=== PATIENT | female | born 1970 | race Caucasian/White ===

== ENCOUNTER 2016-11-19 04:30 | Inpatient (IN) | payer OTHER ==
[2016-11-19] MEDS ORDERED: IOPAMIDOL 300 (61%) 150 ML VIAL IV ONE (04:31)
[2016-11-19] MEDS ORDERED: ONDANSETRON 4 MG/2ML 2 ML VIAL ONE (05:09)
[2016-11-19] MEDS ORDERED: SODIUM CHLORIDE 0.9% 1,000 ML ONE ×2 (05:09→06:32)
[2016-11-19] MEDS ORDERED: HYDROMORPHONE HCL 0.5 MG/0.5 ML SYRINGE ONE ×2 (05:09→05:26)
[2016-11-19 05:33] LABS: ABSOLUTE NEUTROPHIL COUNT 6.2 K/mm3 (1.8-7.7); BASO % 0.2 % (0.2-1.0); EOS # 0.1 (0.0-0.5); EOS % 1.3 % (0.9-2.9); HEMATOCRIT 38.3 % (37.0-47.0); HEMOGLOBIN 12.8 gm/l (12.0-16.0); IMM NEUT # 0.1 K/mm3 (0-0.2); IMM NEUT% 0.7 % (0-1); LYMPH # 1.8 (1.0-4.8); LYMPH % 20.1 % (15-45); MEAN CELL VOLUME 96.5 fl (81.0-99.0); MEAN CORPUSCULAR HEMOGLOBIN 32.2 pg (27.0-31.0); MEAN CORPUSCULAR HGB CONC 33.4 g/dl (33.0-37.0); MEAN PLATELET VOLUME 9.4 fl (7.4-10.4); MONO # 0.6 (0.0-0.8); MONO % 7.3 % (4-12); NEUT % 70.4 % (43-75); PLATELET COUNT 313 K/mm3 (130-400); RED CELL DISTRIBUTION WIDTH 11.9 % (11.5-14.5)
[2016-11-19] MEDS ORDERED: MORPHINE SULFATE 4 MG/ML SYRINGE ONE ×2 (05:44→06:51)
[2016-11-19] MEDS ORDERED: MORPHINE SULFATE 2 MG/ML SYRINGE ONE (05:44)
[2016-11-19 05:47] LABS: ALB/GLOB RATIO 1.2 (>1.0); ALBUMIN 3.6 gm/dL (3.5-5.7); CALCIUM 9.5 mg/dL (8.6-10.3)
[2016-11-19 06:07] LABS: I-STAT CREATININE 0.7 mg/dL (0.6-1.3)
[2016-11-19] MEDS ORDERED: ERTAPENEM SODIUM 1 G VIAL ONE (06:31)
[2016-11-19] MEDS ORDERED: ACETAMINOPHEN 325 MG TABLET PO PRN (07:38)
[2016-11-19] MEDS ORDERED: DIPHENHYDRAMINE HCL 50 MG/1 ML VIAL IV PRN (07:38)
[2016-11-19] MEDS ORDERED: BLISTEX LIPSTICK 1 EACH TP PRN (07:38)
[2016-11-19] MEDS ORDERED: MENTHOL/CETYLPYRD 1 EACH LOZENGE PO PRN (07:38)
[2016-11-19 07:57] LABS: INR 0.95; PARTIAL THROMBOPLASTIN TIME 23.2 SECONDS (24.5-33.0)
--- NOTE | 2016-11-19 08:02 | CT ---
Exam Type: ABD/PELVIS W/ CON Date and Time: 11/19/2016 5:08 AM Clinical information: Diffuse abdominal pain for 6 days. Comparison: None Technique: Contiguous axial 4 mm images were obtained from the lung bases through the pelvis after the uneventful IV administration of 125 cc of Isovue-300. Sagittal and coronal reformations with high resolution lung algorithm images were also obtained at this time. CT DI: 17.1 DLP 873.2 FINDINGS: Lung base : 5 mm pleural tag is noted along the left base laterally on image 6. On the antral lateral right base on image 7 is a 4 mm pleural tag. The remainder the lung bases are unremarkable. Visualized heart:There is no pericardial effusion. LIVER: Liver is enlarged measuring 21 cm in craniocaudal extent on image 35. There is some subtle diffuse fatty infiltration without focal lesion or intrahepatic duct dilation. BILE DUCTS: normal caliber. GALLBLADDER: No calcified gallstones. Normal caliber wall. PANCREAS: within normal limits. SPLEEN: within normal limits. ADRENALS: Thickening of the left adrenal gland is present, which may relate to hyperplasia. The right adrenal gland is normal. KIDNEYS: within normal limits. Stomach and small BOWEL: Normal caliber. Large bowel: Air and stool are noted within the large bowel. Appendix is abnormally enlarged measuring upward 8 mm on axial image 79. Additionally along the apical tip is a fluid collection with air-fluid level measuring 3.8 x 2.9 cm on axial image 83. Findings represent abscess. Periappendicular fat stranding is also present.. LYMPH NODES: No enlarged mesenteric lymph nodes. PERITONEUM: no ascites or free air, no fluid collection. Diffuse fat stranding is present throughout much of the mesentery likely relating to the patient's complicated appendicitis. Differential considerations could include enterocolitis. VESSELS: within normal limits RETROPERITONEUM: within normal limits. ABDOMINAL WALL: within normal limits. Bladder: Decompressed but normal. Uterus and adnexa: Probable right ovarian cyst measuring 2.7 x 2.0 cm is present on image 87. Exophytic lesion is present along the anterior left lower uterine segment likely relating to a fibroid. This measures 3.9 x 3.67 m on axial image 93. BONES: There may be some slight retrolisthesis of L5 on S1. Otherwise sagittal alignment is intact. Mild degenerative changes are also noted. No lytic or sclerotic lesions. IMPRESSION: Complicated appendicitis with abscess. There is fat stranding throughout the mesentery likely relating to this process though differential considerations could include enterocolitis. Multiple pleural tag's are identified at the lung bases. No definite nodular density is identified. Consideration for outpatient chest CT could be made for further assessment. Hepatomegaly and other incidental findings as above. Preliminary report was provided by [facility] at approximately 0619 hours on 11/19/2016.
[2016-11-19] MEDS ORDERED: PUMP TUBING ONE (09:03)
[2016-11-19] MEDS ORDERED: MORPHINE SULFATE 2 MG/ML SYRINGE IV PRN (09:03)
[2016-11-19] MEDS: ERTAPENEM SODIUM 1 G in NS 0.9% (MINI-BAG PLUS) 50 ML IV SCH (09:11)
[2016-11-19] MEDS: LACTATED RINGERS 1,000 ML IV SCH ×3 (09:12→21:59)
--- NOTE | 2016-11-19 09:50 | PDOC1 ---
History & Physical: CC: Abdominal Pain HPI:46yo F with abdominal pain. This started 4 days ago in the epigastric and han-umbilical regions. Over the next 4 days, the pain became more generalized and worsened. The pain was constant. She had associated subjective chills and one day of diarrhea. The patient denies any recent F/V/CP/SOB, change in bladder fx, constipation, unintentional weight loss, easy bleeding/bruising, or other associated symptoms. REVIEW OF SYSTEMS CONSTITUTIONAL: As per HPI. EARS, NOSE, MOUTH, THROAT: No sneezing or runny nose CARDIOVASCULAR: As per HPI. RESPIRATORY: As per HPI. GASTROINTESTINAL: As per HPI. GENITOURINARY: As per HPI. NEUROLOGICAL: No history of seizures HEMATOLOGIC: As per HPI. MUSCULOSKELETAL: No change in strength. LYMPHATICS: No history of splenectomy. PSYCHIATRIC: No change in personality or affect PMH: None PSH: LEFT ankle surgery, TNA/Ear Tubes as a child Meds: Ibuprofen All: Amoxicillin (rash), Zitrhomax (rash) SH:Active smoker, denies EtOH FH: Father with esophageal cancer, MGM with breast cancer and skin cancer, sister with cervical cancer. No FH of colorectal cancer or IBD. Vitals (last 24 hours): Vital Signs - 24 hr 11/19/16 07:38 Temperature 99.6 F Pulse Rate 120 Respiratory 20 Rate Blood Pressure 110/70 O2 Saturation 99 by Pulse Oximetry Physical Exam: General/Constitutional: Vitals documented above, comfortable in NAD Psych: A&O x 3, normal judgment and insight. Recent and remote memory intact. Mood and affect normal. Eyes: Pupils equal, no scleral icterus Ears, Nose, Mouth, Throat: gross hearing intact Neck: Supple Heart: RRR, no LE edema Lungs: Equal rise and fall of chest wall, non-labored breathing, no audible wheezes Neuro: Gross sensation intact Abdomen: Soft, ND, mild diffuse TTP greatest in RLQ without guarding. Labs (Last 24 hours): Laboratory Results - last 24 hr 11/19/16 11/19/16 05:00 07:00 WBC 8.7 RBC 3.97 L Hgb 12.8 Hct 38.3 MCV 96.5 MCH 32.2 H MCHC 33.4 RDW 11.9 Plt Count 313 Neut % (Auto) 70.4 Lymph % (Auto) 20.1 [place] % (Auto) 7.3 Baso % (Auto) 0.2 Absolute Neuts (auto) 6.2 Eosinophils % 1.3 PT 10.0 INR 0.95 PTT 23.2 L VBG Total CO2 25 VBG Lactate 1.1 Sodium 138 Potassium 3.8 Chloride 105 Carbon Dioxide 25 Anion Gap 12 BUN 17 Creatinine 0.7 Estimated GFR 78 BUN/Creatinine Ratio 20 Glucose 135 H Calcium 9.5 Ionized Calcium 1.23 Total Bilirubin 0.3 AST 12 L ALT 13 Alkaline Phosphatase 39 Total Protein 6.7 Albumin 3.6 Globulin 3.1 Albumin/Globulin Ratio 1.2 Lipase 8 L Beta HCG, Qual Negative % Immature Granulocyt 0.7 Radiology: FINDINGS: Lung base : 5 mm pleural tag is noted along the left base laterally on image 6. On the antral lateral right base on image 7 is a 4 mm pleural tag. The remainder the lung bases are unremarkable. Visualized heart:There is no pericardial effusion. LIVER: Liver is enlarged measuring 21 cm in craniocaudal extent on image 35. There is some subtle diffuse fatty infiltration without focal lesion or intrahepatic duct dilation. BILE DUCTS: normal caliber. GALLBLADDER: No calcified gallstones. Normal caliber wall. PANCREAS: within normal limits. SPLEEN: within normal limits. ADRENALS: Thickening of the left adrenal gland is present, which may relate to hyperplasia. The right adrenal gland is normal. KIDNEYS: within normal limits. Stomach and small BOWEL: Normal caliber. Large bowel: Air and stool are noted within the large bowel. Appendix is abnormally enlarged measuring upward 8 mm on axial image 79. Additionally along the apical tip is a fluid collection with air-fluid level measuring 3.8 x 2.9 cm on axial image 83. Findings represent abscess. Periappendicular fat stranding is also present. LYMPH NODES: No enlarged mesenteric lymph nodes. PERITONEUM: no ascites or free air, no fluid collection. Diffuse fat stranding is present throughout much of the mesentery likely relating to the patient's complicated appendicitis. Differential considerations could include enterocolitis. VESSELS: within normal limits RETROPERITONEUM: within normal limits. ABDOMINAL WALL: within normal limits. Bladder: Decompressed but normal. Uterus and adnexa: Probable right ovarian cyst measuring 2.7 x 2.0 cm is present on image 87. Exophytic lesion is present along the anterior left lower uterine segment likely relating to a fibroid. This measures 3.9 x 3.67 m on axial image 93. BONES: There may be some slight retrolisthesis of L5 on S1. Otherwise sagittal alignment is intact. Mild degenerative changes are also noted. No lytic or sclerotic lesions. IMPRESSION: Complicated appendicitis with abscess. There is fat stranding throughout the mesentery likely relating to this process though differential considerations could include enterocolitis. Multiple pleural tag's are identified at the lung bases. No definite nodular density is identified. Consideration for outpatient chest CT could be made for further assessment. Hepatomegaly and other incidental findings as above. A/P: 46yo F with ruptured appendicitis with abscess. She was admitted, made NPO , started on IVF, and started on IV Invanz. I discussed her CT scan with radiology who does not believe the abscess is accessible percutaneously. Will continue bowel rest, IVF, Invanz, and trend vitals/labs. Lovenox for DVT Proph. I counseled the patient on the importance of smoking cessation. Isidro Philip MD Staff General Surgeon C: [phone]
[2016-11-19] MEDS: ENOXAPARIN SODIUM 40 MG/0.4 ML SYRINGE SUB-Q SCH (11:19)
[2016-11-19 11:26] VITALS: BMI 32.3
[2016-11-19] MEDS: MORPHINE SULFATE 4 MG/ML SYRINGE IV PRN ×3 (13:51→23:13)
[2016-11-19] MEDS: ONDANSETRON 4 MG/2ML 2 ML VIAL IV PRN ×2 (19:22→23:13)
[2016-11-20] MEDS: ONDANSETRON 4 MG/2ML 2 ML VIAL IV PRN ×3 (03:32→23:52)
[2016-11-20] MEDS: MORPHINE SULFATE 4 MG/ML SYRINGE IV PRN ×7 (03:32→23:52)
[2016-11-20] MEDS: LACTATED RINGERS 1,000 ML IV SCH (04:22)
[2016-11-20 06:01] LABS: HEMATOCRIT 32.2 % (37.0-47.0); HEMOGLOBIN 10.5 gm/l (12.0-16.0); MEAN CELL VOLUME 97.9 fl (81.0-99.0); MEAN CORPUSCULAR HEMOGLOBIN 31.9 pg (27.0-31.0); MEAN CORPUSCULAR HGB CONC 32.6 g/dl (33.0-37.0); RED CELL DISTRIBUTION WIDTH 12.3 % (11.5-14.5)
[2016-11-20] MEDS: ERTAPENEM SODIUM 1 G in NS 0.9% (MINI-BAG PLUS) 50 ML IV SCH (06:10)
[2016-11-20 06:18] LABS: CALCIUM 8.5 mg/dL (8.6-10.3); MAGNESIUM 1.5 mg/dL (1.9-2.7)
[2016-11-20] MEDS ORDERED: ENOXAPARIN SODIUM 40 MG/0.4 ML SYRINGE SUB-Q SCH (07:04)
[2016-11-20] MEDS ORDERED: POTASSIUM PHOSPHATE 30 MMOL in SODIUM CHLORIDE 0.9% 500 ML IV SCH (08:45)
[2016-11-20] MEDS ORDERED: MAGNESIUM SULFATE 4 G/100 ML 4 G in Premix (Water) 100 ml 1 EACH IV SCH (08:45)
[2016-11-20] MEDS ORDERED: PUMP TUBING ONE (08:55)
[2016-11-20] MEDS: ENOXAPARIN SODIUM 40 MG/0.4 ML SYRINGE SUB-Q SCH (10:04)
--- NOTE | 2016-11-20 11:16 | PDOC43 ---
- Subjective S: Pain slightly improved. Tolerated clears. Did have one episode of emesis which the patient thinks was related to the timing of her morphine. No other complaints. O: Vitals reviewed, HR improved/normalized Excellent UOP Physical Exam: General/Constitutional: Vitals documented above, comfortable in NAD Psych: A&O x 3, normal judgment and insight. Recent and remote memory intact. Mood and affect normal. Eyes: Pupils equal, no scleral icterus Ears, Nose, Mouth, Throat: gross hearing intact Neck: Supple Heart: RRR, no LE edema Lungs: Equal rise and fall of chest wall, non-labored breathing, no audible wheezes Neuro: Gross sensation intact Abdomen: Soft, ND, moderate RLQ TTP without guarding. Labs: A/P: 46yo F with perforated appendicitis with abscess. Pain improved and HR normalized. WBC elevated to 13K, will trend. Hgb downtrended, likely dilutional given large volume IV resuscitation. Low K, Mg, Phos, all replaced. Will keep on clear liquids today but decrease IVF rate to 75mL/hr. Continue SCDs/Lovenox for DVT Proph. Isidro Philip MD General Surgeon - Objective Vital Signs Temperature 99.0 F 11/20/16 07:41 Pulse Rate 95 11/20/16 07:41 Respiratory Rate 20 11/20/16 07:41 Blood Pressure 101/65 11/20/16 07:41 O2 Saturation by Pulse Oximetry 95 11/20/16 07:41 Oxygen Delivery Method Room Air Oxygen Flow Rate 0 Laboratory 11/20/16 05:30 11/20/16 05:30 11/20/16 05:30 RBC 3.29 L MCH 31.9 H MCHC 32.6 L Estimated GFR 108 H Calcium 8.5 L Phosphorus 1.8 L Magnesium 1.5 L Active Medication Orders Category Date Time Status Acetaminophen [Tylenol] Med 11/19/16 07:38 Active 650 mg PO Q4H PRN D5 1/2NS with 20 mEq KCL [D51/2NS with 20 mEq KCL] 1, Med 11/20/16 09:00 Active 000 ml IV 75 mls/hr Diphenhydramine HCl [Benadryl] Med 11/19/16 07:38 Active 12.5 - 25 mg IV Q6H PRN Enoxaparin Sodium [Lovenox] Med 11/19/16 10:18 Active 40 mg SUB-Q Q24H Ertapenem Sodium [Invanz] 1 g Med 11/19/16 06:30 Active Ns 0.9% (Mini-Bag Plus) [Mini-Bag Plus (Ns)] 50 ml IV Q24H Lip [place] [Blistex] Med 11/19/16 07:38 Active 1 each TP PRN PRN Magnesium Sulfate 4 G/100 ml [Magnesium Sulfate] 4 g Med 11/20/16 08:45 Active Premix (Water) 100 ml 1 each IV X1 Menthol/Cetylpyridinium [Cepacol] Med 11/19/16 07:38 Active 1 each PO PRN PRN Morphine Sulfate Med 11/19/16 09:03 Active 1 - 4 mg IV Q1H PRN Morphine Sulfate Med 11/19/16 09:56 Active 1 - 4 mg IV Q1H PRN Ondansetron 4 mg/2ml Vial [Zofran] Med 11/19/16 07:38 Active 4 mg IV Q4H PRN Potassium Phosphate 30 mmol Med 11/20/16 08:45 Active Sodium Chloride 0.9% 500 ml IV X1 Sodium Chloride 0.9% Flush [Normal Saline 10ml Flush] Med 11/19/16 07:38 Active 10 - 50 ml IV PRN PRN Sodium Chloride 0.9% Flush [Normal Saline 10ml Flush] Med 11/19/16 09:00 Active 10 ml IV Q8HR Intake and Output 11/18/16 11/19/16 11/20/16 23:59 23:59 23:59 Intake Total 1989 2623 Output Total 679 220 Balance 1062 1053
[2016-11-20] MEDS: D5 1/2NS with 20 mEq KCL 1,000 ML IV SCH (13:33)
[2016-11-20] MEDS ORDERED: KETOROLAC TROMETHAMINE 30 MG/ML 1 ML VIAL IV ONE (14:58)
[2016-11-21] MEDS: D5 1/2NS with 20 mEq KCL 1,000 ML IV SCH ×3 (01:02→17:05)
[2016-11-21] MEDS ORDERED: KETOROLAC TROMETHAMINE 30 MG/ML 1 ML VIAL IV ONE (02:16)
[2016-11-21 05:37] LABS: HEMATOCRIT 31.6 % (37.0-47.0); HEMOGLOBIN 10.5 gm/l (12.0-16.0); MEAN CELL VOLUME 96.6 fl (81.0-99.0); MEAN CORPUSCULAR HEMOGLOBIN 32.1 pg (27.0-31.0); MEAN CORPUSCULAR HGB CONC 33.2 g/dl (33.0-37.0); RED CELL DISTRIBUTION WIDTH 12.4 % (11.5-14.5)
[2016-11-21] MEDS ORDERED: ERTAPENEM SODIUM 1 G VIAL ONE (05:43)
[2016-11-21] MEDS ORDERED: SODIUM CHLORIDE 0.9% 50 ML IV ONE (05:44)
[2016-11-21] MEDS: ERTAPENEM SODIUM 1 G in NS 0.9% (MINI-BAG PLUS) 50 ML IV SCH (05:58)
[2016-11-21] MEDS ORDERED: PUMP TUBING ONE (06:02)
[2016-11-21] MEDS ORDERED: POTASSIUM PHOSPHATE 30 MMOL in SODIUM CHLORIDE 0.9% 500 ML IV ONE (08:09)
--- NOTE | 2016-11-21 08:41 | PDOC43 ---
- Subjective S: HOFFMAN yesterday improved with Toradol. Abdominal pain improved. Tolerating clear liquids. Passing flatus but no BM. No other complaints. O: Vitals reviewed, below I/O reviewed, below Physical Exam: General/Constitutional: Vitals documented above, comfortable in NAD Psych: A&O x 3, normal judgment and insight. Recent and remote memory intact. Mood and affect normal. Eyes: Pupils equal, no scleral icterus Ears, Nose, Mouth, Throat: gross hearing intact Neck: Supple Heart: RRR, trace LE edema Lungs: Equal rise and fall of chest wall, non-labored breathing, no audible wheezes Neuro: Gross sensation intact Abdomen: Soft, ND, minimal RLQ TTP, no guarding. Significantly improved from yesterday. Labs: See below A/P: 46yo F with perforated appendicitis with abscess, continues to improve on IV Abx. WBC normalized and HR now in 70s (120s on admission). Will advance to regular diet and transition to PO pain medications. Continue Invanz. Replace K and phos. Lovenox for DVT Proph. If tolerates regular diet and WBC remains normal, possible discharge tomorrow. Isidro Philip MD General Surgeon - Objective Vital Signs Temperature 98.7 F 11/21/16 07:44 Pulse Rate 85 11/21/16 07:44 Respiratory Rate 16 11/21/16 07:44 Blood Pressure 105/68 11/21/16 07:44 O2 Saturation by Pulse Oximetry 98 11/21/16 07:48 Oxygen Delivery Method Room Air Oxygen Flow Rate 0 Laboratory 11/21/16 05:30 11/21/16 05:30 11/21/16 05:30 RBC 3.27 L MCH 32.1 H Estimated GFR 108 H Calcium 8.0 L Phosphorus 2.2 L Active Medication Orders Category Date Time Status D5 1/2NS with 20 mEq KCL [D51/2NS with 20 mEq KCL] 1, Med 11/20/16 09:00 Active 000 ml IV 75 mls/hr Diphenhydramine HCl [Benadryl] Med 11/19/16 07:38 Active 12.5 - 25 mg IV Q6H PRN Enoxaparin Sodium [Lovenox] Med 11/19/16 10:18 Active 40 mg SUB-Q Q24H Ertapenem Sodium [Invanz] 1 g Med 11/19/16 06:30 Active Ns 0.9% (Mini-Bag Plus) [Mini-Bag Plus (Ns)] 50 ml IV Q24H Lip [place] [Blistex] Med 11/19/16 07:38 Active 1 each TP PRN PRN Menthol/Cetylpyridinium [Cepacol] Med 11/19/16 07:38 Active 1 each PO PRN PRN Morphine Sulfate Med 11/19/16 09:56 Active 1 - 4 mg IV Q1H PRN Ondansetron 4 mg/2ml Vial [Zofran] Med 11/19/16 07:38 Active 4 mg IV Q4H PRN Oxycodone HCl/Acetaminophen [Percocet 5/325] Med 11/21/16 08:30 Active 1 - 2 tab PO Q4H PRN Potassium Phosphate 15 mmol Med 11/21/16 08:45 Active Sodium Chloride 0.9% 250 ml IV X1 Sodium Chloride 0.9% Flush [Normal Saline 10ml Flush] Med 11/19/16 07:38 Active 10 - 50 ml IV PRN PRN Sodium Chloride 0.9% Flush [Normal Saline 10ml Flush] Med 11/19/16 09:00 Active 10 ml IV Q8HR Intake and Output 11/19/16 11/20/16 11/21/16 23:59 23:59 23:59 Intake Total 1989 5517 1992 Output Total 277 1350 875 Balance 1340 1631 1111
[2016-11-21] MEDS ORDERED: POTASSIUM PHOSPHATE 15 MMOL in SODIUM CHLORIDE 0.9% 250 ML IV ONE (08:45)
[2016-11-21] MEDS: ENOXAPARIN SODIUM 40 MG/0.4 ML SYRINGE SUB-Q SCH (09:20)
[2016-11-21] MEDS: IBUPROFEN 800 MG TABLET PO PRN ×2 (09:37→17:03)
[2016-11-21] MEDS: OXYCODONE/ACETAMINOPHEN 5/325 MG TABLET PO PRN ×2 (17:03→21:08)
[2016-11-22] MEDS: IBUPROFEN 800 MG TABLET PO PRN ×2 (00:04→07:58)
[2016-11-22] MEDS: D5 1/2NS with 20 mEq KCL 1,000 ML IV SCH (05:54)
[2016-11-22] MEDS: ERTAPENEM SODIUM 1 G in NS 0.9% (MINI-BAG PLUS) 50 ML IV SCH (05:54)
[2016-11-22 05:56] LABS: HEMATOCRIT 31.5 % (37.0-47.0); HEMOGLOBIN 10.2 gm/l (12.0-16.0); MEAN CELL VOLUME 97.8 fl (81.0-99.0); MEAN CORPUSCULAR HEMOGLOBIN 31.7 pg (27.0-31.0); MEAN CORPUSCULAR HGB CONC 32.4 g/dl (33.0-37.0); RED CELL DISTRIBUTION WIDTH 12.7 % (11.5-14.5)
[2016-11-22 06:19] LABS: CALCIUM 8.1 mg/dL (8.6-10.3)
[2016-11-22] MEDS: OXYCODONE/ACETAMINOPHEN 5/325 MG TABLET PO PRN (07:59)
[2016-11-22] MEDS: ENOXAPARIN SODIUM 40 MG/0.4 ML SYRINGE SUB-Q SCH (07:59)
--- NOTE | 2016-11-22 08:35 | PDOC43 ---
- Subjective S: Tolerated some regular diet. Pain improved. Ambulating. Passing flatus but no BM. No other complaints. O: Vitals reviewed, below I/O reviewed, below Physical Exam: General/Constitutional: Vitals documented above, comfortable in NAD Psych: A&O x 3, normal judgment and insight. Recent and remote memory intact. Mood and affect normal. Eyes: Pupils equal, no scleral icterus Ears, Nose, Mouth, Throat: gross hearing intact Neck: Supple Heart: RRR, no LE edema Lungs: Equal rise and fall of chest wall, non-labored breathing, no audible wheezes Neuro: Gross sensation intact Abdomen: Soft, ND, mild RLQ TTP, no guarding. Stable from yesterday. A/P: 46yo F with perforated appendicitis with abscess. WBC continues to improve and lytes normal this AM. Will discharge home on 10 day course of Cipro/Flagyl. Will coordinate f/u with Dr. Hopkins to coordinate elective outpatient colonoscopy. Isidro Philip MD General Surgeon - Objective Vital Signs Temperature 99.0 F 11/22/16 07:43 Pulse Rate 80 11/22/16 07:43 Respiratory Rate 20 11/22/16 07:43 Blood Pressure 104/64 11/22/16 07:43 O2 Saturation by Pulse Oximetry 97 11/22/16 07:43 Oxygen Delivery Method Room Air Oxygen Flow Rate 0 Laboratory 11/22/16 05:30 11/22/16 05:30 11/22/16 05:30 RBC 3.22 L MCH 31.7 H MCHC 32.4 L BUN 6 L Estimated GFR 108 H Calcium 8.1 L Active Medication Orders Category Date Time Status D5 1/2NS with 20 mEq KCL [D51/2NS with 20 mEq KCL] 1, Med 11/20/16 09:00 Active 000 ml IV 75 mls/hr Diphenhydramine HCl [Benadryl] Med 11/19/16 07:38 Active 12.5 - 25 mg IV Q6H PRN Enoxaparin Sodium [Lovenox] Med 11/19/16 10:18 Active 40 mg SUB-Q Q24H Ertapenem Sodium [Invanz] 1 g Med 11/19/16 06:30 Active Ns 0.9% (Mini-Bag Plus) [Mini-Bag Plus (Ns)] 50 ml IV Q24H Ibuprofen [Motrin] Med 11/21/16 09:25 Active 800 mg PO TID PRN Lip [place] [Blistex] Med 11/19/16 07:38 Active 1 each TP PRN PRN Menthol/Cetylpyridinium [Cepacol] Med 11/19/16 07:38 Active 1 each PO PRN PRN Morphine Sulfate Med 11/19/16 09:56 Active 1 - 4 mg IV Q1H PRN Ondansetron 4 mg/2ml Vial [Zofran] Med 11/19/16 07:38 Active 4 mg IV Q4H PRN Oxycodone HCl/Acetaminophen [Percocet 5/325] Med 11/21/16 08:30 Active 1 - 2 tab PO Q4H PRN Sodium Chloride 0.9% Flush [Normal Saline 10ml Flush] Med 11/19/16 07:38 Active 10 - 50 ml IV PRN PRN Sodium Chloride 0.9% Flush [Normal Saline 10ml Flush] Med 11/19/16 09:00 Active 10 ml IV Q8HR Intake and Output 11/20/16 11/21/16 11/22/16 23:59 23:59 23:59 Intake Total 3723 8478 2256 Output Total 2150 0345 600 Balance 4606 9430 9375
--- NOTE | 2016-11-22 09:00 | PDOC5 ---
ADMIT DATE: 11/19/16 DISCHARGE DATE: 11/22/16 ADMISSION DIAGNOSES: perforated appendicitis with abscess PROCEDURES PERFORMED THIS HOSPITALIZATION: none CONSULTATIONS: general surgery HOSPITAL COURSE: This is a 46 year old who presented with perforated appendicitis with abscess. She was treated non-operatively. She was admitted, initiated on bowel rest, and started on IV antibiotics. Over the next several days her WBC normalized and her diet was slowly advanced. She was discharged home on a 14 day total course of antibiotics. - Objective Vital Signs Temperature 99.0 F 11/22/16 07:43 Pulse Rate 80 11/22/16 07:43 Respiratory Rate 20 11/22/16 07:43 Blood Pressure 104/64 11/22/16 07:43 O2 Saturation by Pulse Oximetry 97 11/22/16 07:43 Oxygen Delivery Method Room Air Oxygen Flow Rate 0 - Discharge Plan Forms: Work Release Form Additional Instructions: If you develope fevers, chills, nausea, vomiting, chest pain, shortness of breath, worsening pain, or other concerning symptoms, please return to the Emergency Room. Prescriptions: Ciprofloxacin [Cipro] 500 mg PO BID #20 tab Metronidazole [FLAGYL 500 MG TABLET (SHF)] 500 mg PO TID #30 tablet Polyethylene Glycol 3350 [MIRALAX 17 G PACKET (SHF)] 17 g PO DAILY PRN #1 bot PRN Reason: Constipation Follow-Up: Shari Hopkins MD [Staff Physician] - ([facility]. Their office will contact you to schedule a follow up appointment.)
[2016-11-22 12:24] VITALS: BP 104/66
== END 2016-11-22 14:15 | disposition home or self-care (01) | DRG 373 ==
LOC: ED 04:30 → MS 06:40 → SDC 06:40 → UNDOFXSDCACCOM 07:26 → MS 07:26 → UNDOFXSDCRRACCOM 07:26
PROVIDERS: ADMIT Surgery; ATTEND Surgery
DX: K35.3 Acute appendicitis with localized peritonitis (principal)